=== PATIENT | male | born 1965 | race Caucasian/White ===

== ENCOUNTER 2018-01-09 14:10 | Emergency (ER) | payer MEDICAID ==
[~2018-01-09] VITALS: Ht 185.4 cm; Wt 98.9 kg
[2018-01-09 14:14] VITALS: BP 152/95
[2018-01-09] MEDS ORDERED: ELVI1TAB2 PO (14:19)
[2018-01-09] MEDS ORDERED: SULF-59 PO (14:19)
[2018-01-09 15:09] VITALS: BP 142/88
== END 2018-01-09 15:09 | disposition home or self-care (01) ==
LOC: MED 14:10
DX: F14.10 Cocaine abuse, uncomplicated (principal); H53.8 Other visual disturbances; R20.2 Paresthesia of skin; Z79.899 Other long term (current) drug therapy
CPT/HCPCS: 99281